=== PATIENT | female | born 1950 | race Caucasian/White ===

== ENCOUNTER → 2016-08-24 | Outpatient (CLI) | payer BC ==
[~2016-08-24] MED LIST: ALBUTEROL0.09 MG/A2 IH; AMBIEN 10MG10 MG PO; BENICAR 20MG TA20 MG PO; CO Q-1010 MG PO; DECADRON 4MG TAB4 MG PO; DHA PO; DUO-KAPS1 CAP PO; MAXZIDE-25MG TA1 TAB PO; NAPROXEN 3375 MG/TAB PO; PROZAC 20MG20 MG PO; ULTRAM 50MG TAB50 MG PO; VERELAN180 MG PO; VITAMIN B COMPL1 SGL PO; XANAX 0.5MG0.5 MG PO; ZITHROMAX Z PA250 MG PO; ZOCOR40 MG PO; [UNRECOGNIZED DRUG - OTHER] PO
== END ==
LOC: MC.RAD 13:08
DX: N64.4 Mastodynia (principal); N63 Unspecified lump in breast

== ENCOUNTER 2018-05-24 08:58 | Inpatient (IN) | payer BC, MEDICARE ==
[~2018-05-24] VITALS: Ht 162.6 cm; Wt 80.2 kg
[2018-06-20] VITALS (10 sets, daily range): BP systolic 106–135; BP diastolic 41–92; PULSE 64–81; TEMP 97.8–98.5
[2018-06-20] MEDS ORDERED: AMBIEN 5MG TABLE5 MG PO (04:03)
[2018-06-20] MEDS ORDERED: ULTRAM 50MG TAB50 MG PO (04:04)
[2018-06-20] MEDS ORDERED: ZOLOFT 100MG100 MG PO (04:05)
[2018-06-20] MEDS ORDERED: HYZAAR 25 MG-101 TAB PO (04:05)
[2018-06-20] MEDS ORDERED: LIPITOR 40MG TA40 MG PO (04:05)
[2018-06-20] MEDS ORDERED: SYNTHROID0.1 MG/TAB PO (04:06)
--- NOTE | 2018-06-20 11:30 | NUR ---
PATIENT REPORTS SHE IS NOW HAVING PAIN IN RLE RATED AT 6/10. GAVE PRN ROXICODONE, TWO TABS WITH CRACKERS & BROTH. VSS. WILL MONITOR.
--- NOTE | 2018-06-20 20:30 | NUR ---
Assessment completed. Patient is A&O x 4. VSS, currently on 3 liters of supplemental O2 via nasal cannula. Alternating [place]/Emily for pain control. Aquacell dressing to right knee is CDI with cryocuff maintained to knee. Pedal pulses intact. BLE graciela hose/scds on. Encouraged ankle pumps while laying in bed. Tolerating diet with no c/o nausea. Rouse catheter to DD with yellow clear urine draining. New IV started to left forearm, IVF infusing with intermittent antibiotic. Ambulated with assist x 1 with walker and gait belt, gait steady. Patient ambulated approximately 25 feet this evening. Denies any concerns or needs at this time. Bed is in a low position with call light in reach.
[2018-06-21 04:45] VITALS: BP 134/71; PULSE 77; TEMP 98.6
--- NOTE | 2018-06-21 06:30 | NUR ---
Patient has rested well through the night after receiving prn Ambien for sleep. VSS. Pain has been controlled with alternating [place]/Emily. Aquacell dressing to right knee remains CDI with cryocuff maintained to knee. Rouse catheter remains to DD with yellow clear urine draining. IV to INT this morning after last antibiotic. Denies any concerns or needs at this time. Bed is in a low position with call light in reach.
--- NOTE | 2018-06-21 06:55 | NUR ---
awake resting in bed, bedside shift report received from ROSS Lemus
[2018-06-21 07:05] LABS: HEMOGLOBIN 12.1 g/dl (12.5-16.0)
[2018-06-21 07:13] LABS: HEMATOCRIT 36.5 % (37.0-47.0)
[2018-06-21 07:20] VITALS: BP 126/62; PULSE 82; TEMP 98.1
[2018-06-21] MEDS ORDERED: ASPI325T6 PO (07:50)
[2018-06-21] MEDS ORDERED: NORCO 325 MG-7.1 TAB PO (07:51)
[2018-06-21] MEDS ORDERED: TYLENOL 500MG500 MG PO (07:54)
[2018-06-21] MEDS ORDERED: ROXICODONE 55 MG/TAB PO (07:54)
[2018-06-21] MEDS ORDERED: ZANTAC 150MG T150 MG PO (07:55)
--- NOTE | 2018-06-21 08:15 | NUR ---
resting in bed, full assessment completed, see interventions for further info, has ordered breakfast
--- NOTE | 2018-06-21 09:30 | NUR ---
appears to be resting in bed with eyes closed
--- NOTE | 2018-06-21 10:26 | NUR ---
physical therapy in to work with patient, she is c/o pain and medicated with hydrocodone 7.5mg 2 tabs
--- NOTE | 2018-06-21 10:45 | NUR ---
alerted by physical therapy that she was c/o of not feeling well but they were able to get her into recliner, then she began c/o not feeling well and feeling lightheaded and nauseous, BP 86/38, reclined chair and then BP 89/33 and P 72, reclined further and feet elevated and then BP 125/70 and P 76, feels some better but still some nausea dn now a headache, will monitor
--- NOTE | 2018-06-21 10:55 | NUR ---
medicated with zofran 4mg slow IV, will rest in chair
[2018-06-21 11:29] VITALS: BP 88/49; PULSE 78; TEMP 98.1
--- NOTE | 2018-06-21 11:30 | NUR ---
BP is again 88/49 while in the recliner with the head elevated short way, P is 76
--- NOTE | 2018-06-21 12:00 | NUR ---
remains up in recliner, states her nausea is better and she is feeling better, still moans and grimaces at times,
[2018-06-21 13:01] VITALS: BP 95/47; PULSE 73
--- NOTE | 2018-06-21 13:02 | NUR ---
BP remains a little low 95/47, will notify therapy to be cautious when gett her up
--- NOTE | 2018-06-21 13:09 | NUR ---
ambulated out to [place] with physical therapy without c/os dizziness
--- NOTE | 2018-06-21 14:21 | NUR ---
ambulated back to room with therapy without s/s of dizziness, into bed and will try and rest
--- NOTE | 2018-06-21 14:54 | NUR ---
lara catheter discontinued, tolerated well
[2018-06-21 15:22] VITALS: BP 110/45; PULSE 80; TEMP 98.2
--- NOTE | 2018-06-21 15:40 | NUR ---
HENRY met with the patient to discuss discharge plan. The patient lives in [place] with her , Solomon. She reports independence with ADLs prior to hospitalization and has a walker. The patient's PCP is Dr. King Roberson and she receives her medications at [facility]. She reports no difficulties obtaining her meds. The patient plans to return home with her upon discharge and receive outpatient therapy at [facility]. No additional needs at this time.
--- NOTE | 2018-06-21 16:15 | NUR ---
appears to be sleeping, in bed with lights off, eyes closed, resp quiet and easy
--- NOTE | 2018-06-21 16:52 | NUR ---
up to bathroom independently and voided qs, then back to bed, reminded her to call when she needs to get up and verbalizes understanding, medicated with hydrocodone 7.5mg 2 tabs per her request for c/os pain
--- NOTE | 2018-06-21 18:15 | NUR ---
bed alarm sounding and she is starting to get up without assistance, PURCHASE ORDER CHECKER in and assisted into bathroom
--- NOTE | 2018-06-21 18:19 | NUR ---
talking on phone denies needs
--- NOTE | 2018-06-21 18:49 | NUR ---
bedside shift report given to ROSS Lemus
[2018-06-21 20:28] VITALS: BP 106/55; PULSE 90; TEMP 98.4
--- NOTE | 2018-06-21 21:05 | NUR ---
Assessment completed. Patient is A&O x 4. VSS. Pain has been controlled with alternating [place]/Emily. Aquacell dressing to right knee is CDI with cryocuff maintained to knee. Pedal pulses intact. BLE graciela hose/scds on. Tolerating diet with no c/o nausea. Voiding with no difficulities. INT to left forearm. Up with standby assist with walker and gait belt, ambulated approximately 50 feet with a steady gait. Denies any concerns or needs at this time. Bed is in a low position with call light in reach.
[2018-06-22 00:54] VITALS: BP 124/57; PULSE 64; TEMP 98.2
[2018-06-22 05:22] VITALS: BP 116/47; PULSE 78; TEMP 98.1
--- NOTE | 2018-06-22 05:35 | NUR ---
Patient has rested well through the night after receiving prn Ambien last night. VSS. Pain continues to be controlled with alternating [place]/Emily. Aquacell dressing to right knee remains CDI with cryocuff maintained to knee. Up with standby assist through the night to use the restroom, gait remains steady. Denies any concerns or needs at this time. Bed remains in a low position with call light in reach.
[2018-06-22 06:58] VITALS: BP 122/59; PULSE 93; TEMP 97.9
--- NOTE | 2018-06-22 07:16 | NUR ---
Report given to ROSS Roberson
--- NOTE | 2018-06-22 08:00 | NUR ---
PATIENT IS A&O AND ALREADY DRESSED FOR THE DAY. VSS. REPORTS MOD PAIN IN RLE WITH ACTIVITY AND IS REQUESTING PAIN MEDS BEFORE THERAPY WHEN SHE IS DUE. RTK DRESSING IS CD&I WITH AQUACEL. TEDS TO BLE. SCD'S CURRENTLY OFF. POSITIVE PEDAL PULSES. PATIENT EAT/DRINK/VOIDING SUFFICENT AMOUNTS. AM MEDS GIVEN. HEAD TO TOE ASSESSMENT COMPLETE. NO OTHER NEEDS. PATIENT PLANNING TO DISCHARGE HOME LATER TODAY. SEE ORDERS.
--- NOTE | 2018-06-22 09:41 | NUR ---
Initial visit; Kaylan thanked Hospital Scientist for looking in on her and offering God's blessings and to be relieved of her pain.
[2018-06-22 12:58] VITALS: BP 98/57; PULSE 93; TEMP 98.8
== END 2018-06-22 14:15 | disposition home or self-care (01) | DRG 470 ==
LOC: JCC 06-20 05:19
PROVIDERS: ADMIT Orthopaedic Surgery
PROC: 0SRC0J9 Replacement of Right Knee Joint with Synthetic Substitute, Cemented, Open Approach (ICD-10-PCS; principal; 2018-06-20 07:30)
DX: M17.11 Unilateral primary osteoarthritis, right knee (principal); I10 Essential (primary) hypertension; E07.9 Disorder of thyroid, unspecified; Z87.891 Personal history of nicotine dependence
CPT/HCPCS: A4314; A9284; C1713; C1776; J0690; J2250; J2270; J2405; J2704; J3010

== ENCOUNTER → 2018-06-08 | Outpatient (CLI) | payer BC | LOC: COL.RAD 10:31 | DX: Z01.818 Encounter for other preprocedural examination (principal) ==

== ENCOUNTER → 2018-06-13 | Outpatient (CLI) | payer BC ==
[2018-06-13 16:49] LABS: HIV 1/2 Antibodies Non-Reactive; HIV-1p24 Antigen Non-Reactive
== END ==
LOC: COL.LAB 15:16
PROVIDERS: Orthopaedic Surgery
DX: Z01.812 Encounter for preprocedural laboratory examination (principal); M17.11 Unilateral primary osteoarthritis, right knee

== ENCOUNTER → 2020-01-09 | Outpatient (CLI) | payer BC, MEDICARE ==
[~2020-01-09] MED LIST changes: +AMBIEN 5MG TABLE5 MG PO; +ASPI325T6 PO; +HYZAAR 25 MG-101 TAB PO; +LIPITOR 40MG TA40 MG PO; +NORCO 325 MG-7.1 TAB PO; +ROXICODONE 55 MG/TAB PO; +SYNTHROID0.1 MG/TAB PO; +TYLENOL 500MG500 MG PO; +ZANTAC 150MG T150 MG PO; +ZOLOFT 100MG100 MG PO
== END ==
LOC: COL.RAD 08:07
DX: Z01.812 Encounter for preprocedural laboratory examination (principal); G93.89 Other specified disorders of brain
CPT/HCPCS: A9585

== ENCOUNTER → 2020-07-01 | Outpatient (CLI) | payer BC | LOC: COL.RAD 12:39 | DX: Z01.818 Encounter for other preprocedural examination (principal) ==

== ENCOUNTER 2020-08-12 11:24 | Day surgery (SDC) | payer BC ==
[2020-08-12] VITALS (31 sets, daily range): BP systolic 98–162; BP diastolic 55–79; PULSE 58–76; TEMP 97.3–98; O2SAT 96–100
[~2020-08-12] VITALS: Ht 162.6 cm; Wt 75.4 kg
[2020-08-12 12:09] LABS: HEMATOCRIT 38.7 % (37.0-47.0); HEMOGLOBIN 13.1 g/dl (12.5-16.0); MEAN CELL VOLUME 93 fl (80.0-100.0); MEAN CORPUSCULAR HEMOGLOBIN 32 pg (27.0-31.0); MEAN CORPUSCULAR HGB CONC 34 g/dl (33.0-37.0); MEAN PLATELET VOLUME 9.8 fl (7.4-10.4); PLATELET COUNT 208 K/mm3 (130-400); RED BLOOD COUNT 4.15 M/mm3 (4.10-5.30); REDCELL DISTRIBUTION WIDTH-CV 12.8 % (11.5-14.5)
[2020-08-12 12:16] LABS: CALCIUM 9.8 mg/dL (8.4-10.2); CREATININE, serum 0.86 (0.52-1.25); POTASSIUM 3.7 mmol/L (3.4-5.0)
[2020-08-12 12:20] LABS: INR 1.1 (0.8-3.0); PROTHROMBIN TIME 12.1 SECONDS (9.7-12.8)
[2020-08-12 12:22] LABS: PARTIAL THROMBOPLASTIN TIME 35.6 SECONDS (26.0-37.0)
[2020-08-12] MEDS ORDERED: TYLENOL 500MG500 MG PO (12:23)
[2020-08-12] MEDS ORDERED: ASPIRIN E.C. 8181 MG PO (12:23)
[2020-08-12] MEDS ORDERED: LIPITOR 40MG TA40 MG PO (12:24)
[2020-08-12] MEDS ORDERED: COZAAR100 MG PO (12:25)
[2020-08-12] MEDS ORDERED: SYNTHROID0.112 MG/T PO (12:25)
[2020-08-12] MEDS ORDERED: HCTZ 25MG TAB25 MG PO (12:26)
[2020-08-12] MEDS ORDERED: CYMBALTA 60MG60 MG PO (12:26)
[2020-08-12] MEDS ORDERED: ULTRAM 50MG TAB50 MG PO (12:27)
[2020-08-12] MEDS ORDERED: ABILIFY2 MG PO (12:29)
[2020-08-12] MEDS ORDERED: AMBIEN 10MG10 MG PO (12:29)
--- NOTE | 2020-08-12 19:03 | NUR ---
Report given to ROSS Lindsey care relinquished at this time.
--- NOTE | 2020-08-12 22:30 | NUR ---
Pt ambulated 100-200ft without difficulty or pain.
[2020-08-13] VITALS (7 sets, daily range): BP systolic 109–121; BP diastolic 60–69; PULSE 68–74; TEMP 97.7–97.8; O2SAT 93–99
[2020-08-13 05:42] LABS: BASO # 0.1 (0.0-0.2); BASO % 1.1 % (0.0-2.0); EOS # 0.6 (0.0-0.7); EOS % 8.9 % (0-4.0); GRAN # 3.1 (1.4-6.5); GRAN % 47.4 % (42.2-75.2); HEMATOCRIT 38.1 % (37.0-47.0); HEMOGLOBIN 12.9 g/dl (12.5-16.0); LYMPH % 30.5 % (20.0-51.0); MEAN CELL VOLUME 92 fl (80.0-100.0); MEAN CORPUSCULAR HEMOGLOBIN 31 pg (27.0-31.0); MEAN CORPUSCULAR HGB CONC 34 g/dl (33.0-37.0); MEAN PLATELET VOLUME 9.7 fl (7.4-10.4); MONO # 0.8 (0.1-0.6); MONO % 11.9 % (1.7-9.3); PLATELET COUNT 187 K/mm3 (130-400); RED BLOOD COUNT 4.14 M/mm3 (4.10-5.30); REDCELL DISTRIBUTION WIDTH-CV 12.8 % (11.5-14.5)
[2020-08-13 05:55] LABS: CALCIUM 9.5 mg/dL (8.4-10.2); CREATININE, serum 0.91 (0.52-1.25); POTASSIUM 3.7 mmol/L (3.4-5.0)
--- NOTE | 2020-08-13 07:30 | NUR ---
Patient awake and alert resting in bed. Denies any shortness of breath or pain. Groin site assessed with manufacturing supervisor 2nd shift RN. Site clean, dry and intact with no hematoma. Will continue to monitor.
--- NOTE | 2020-08-13 08:20 | NUR ---
Dr. Case reminded that the patient radiation dosing was 6gy during heart catheterization procedure. notified that pt would need a follow up in 7-10 days that included a skin assessment. stated he would have the patient follow up in a week and would have the patients skin assessed.
--- NOTE | 2020-08-13 08:40 | NUR ---
Pt assessed by electroplating laborer staff at this time. Pt reports feeling well and denies any chest pain/pressure or SOA. Pt educated by this RN regarding radiation dosing from heart cath procedure yesterday and s/sx to watch for including skin redness, blistering, peeling, itching on chest and back. Pt instructed to contact physician office if these symptoms or continued cardiac symptoms occur. Pt indicates understanding of these instructions and denies having further questions.
[2020-08-13] MEDS ORDERED: PLAVIX 75MG TAB75 MG PO (10:12)
--- NOTE | 2020-08-13 11:03 | NUR ---
Plan is to return home with spouse Jeff Curran . Patient rpeorts that she resides locally and does not require any assistance. Patient reports that her spouse will pick her up and take her home. PCP is Dr. King Smiley and last seen in Jul 20. Tomasa rpeorts that she is independent and does not use any HHS or have a need. Reports that her is legal DPOA and has ppw. Educated patient to provide a copy for files. No additonal needs assessed prior to DC, educated on support services
--- NOTE | 2020-08-13 11:48 | NUR ---
Patient discharged from hospital via wheelchair and to pick her up. Alert and oriented and in no distress upon discharge. All paperwork verifed and signed by patient.
--- NOTE | 2020-08-13 12:51 | NUR ---
First visit from the accounting advisory services manager. No needs right now.
== END 2020-08-13 11:48 ==
LOC: COL.CAR → ICU 17:40 → COL.CAR 08-13 11:48
PROVIDERS: Internal Medicine Interventional Cardiology
DX: I25.10 Atherosclerotic heart disease of native coronary artery without angina pectoris (principal); E03.9 Hypothyroidism, unspecified; I10 Essential (primary) hypertension; Z20.822 Contact with and (suspected) exposure to COVID-19; Z79.82 Long term (current) use of aspirin; Z79.890 Hormone replacement therapy; Z79.899 Other long term (current) drug therapy; Z79.02 Long term (current) use of antithrombotics/antiplatelets; Z79.891 Long term (current) use of opiate analgesic; Z88.5 Allergy status to narcotic agent
CPT/HCPCS: OP; C1725; C1760; C1769; C1874; C1887; C1894; C9600; J0583; J1644; J2250; J3010; Q9967

== ENCOUNTER → 2020-09-29 | Outpatient (CLI) | payer BC ==
[~2020-09-29] MED LIST changes: +ABILIFY2 MG PO; +ASPIRIN E.C. 8181 MG PO; +COZAAR100 MG PO; +CYMBALTA 60MG60 MG PO; +HCTZ 25MG TAB25 MG PO; +PLAVIX 75MG TAB75 MG PO; +SYNTHROID0.112 MG/T PO
== END ==
LOC: MC.RAD 10:23
DX: Z12.31 Encounter for screening mammogram for malignant neoplasm of breast (principal)

== ENCOUNTER → 2021-12-01 | Outpatient (CLI) | payer MEDICARE | LOC: MC.RAD 16:27 | DX: Z12.31 Encounter for screening mammogram for malignant neoplasm of breast (principal) ==